=== PATIENT | female | born 1940 | race Caucasian/White ===

== ENCOUNTER 2017-10-18 13:41 | Emergency (ER) | payer MEDICARE ==
[~2017-10-18] VITALS: Ht 165.1 cm; Wt 65.3 kg
[~2017-10-18 13:41] MED LIST: DICLOFENAC SOD75 MG PO; FLEXERIL 10MG (10 MG PO; FLEXERIL 5MG TAB5 MG PO; LISINOPRIL20 MG PO; MELOXICAM7.5 MG PO; MOBIC15 MG PO; NEURONTIN300 MG PO; PERCOCET 325 MG1 TA2 PO; VICODIN5-300 PO
[2017-10-18 15:10] LABS: ABSOLUTE BASOPHIL COUNT 0 /CUMM (0.0-0.2); ABSOLUTE EOSINOPHIL COUNT 0.1 /CUMM (0.0-0.7); ABSOLUTE GRANULOCYTE CT 3.5 /CUMM (1.4-6.5); ABSOLUTE LYMPH COUNT 1.3 /CUMM (1.2-3.4); ABSOLUTE MONOCYTE COUNT 0.4 /CUMM (0.10-0.60); BASOPHIL % 0.4 % (0.0-2.0); EOSINOPHIL % 1.2 % (0-5); GRANULOCYTE % 65.5 % (42.2-75.2); HEMATOCRIT 35.7 % (37-47); MEAN CORPUSCULAR HGB 30.5 PG (27.0-31.0); MEAN CORPUSCULAR HGB CONC 33.5 G/DL (33.0-37.0); MEAN CORPUSCULAR VOLUME 91.1 FL (81.0-99.0); MEAN PLATELET VOLUME 9.9 FL (7.4-10.4); PLATELET COUNT 231 /CUMM (130-400); RBC DISTRIBUTION WIDTH 13.3 % (11.5-14.5); RED BLOOD CELL CT 3.92 /CUMM (4.20-5.40); WHITE BLOOD CELL COUNT 5.3 /CUMM (4.8-10.8)
--- NOTE | 2017-10-18 16:32 | ED HEADACHE COMPLAINT ---
History of Present Illness General Chief Complaint: General Adult Stated Complaint: ?SINUS INFECTION Source: patient Exam Limitations: no limitations Allergies Coded Allergies: STATINS (muscle ache and liver issues 01/07/15) Reconcile Medications Amoxicillin/Potassium Clav (Augmentin 875-125 Tablet) 875 MG-125 MG TABLET 1 TAB PO BID sinusitis Cyclobenzaprine (Flexeril 5MG Tab) 5 MG TAB 1 TAB PO Q8H PAIN (Reported) Diclofenac Sodium 75 MG ECT 1 TAB PO DAILY PAIN (Reported) Fiorinal (Fiorinal 50-325-40 MG Capsule) 50 MG-325 MG-40 MG CAPSULE 1 TAB PO BID PRN headache Gabapentin (Neurontin) 300 MG CAP 1 CAP PO QHS PAIN (Reported) HYDROCODONE/ACETAMINOPHEN (Hydrocodon-Acetaminophen 5-325) 1 TAB TAB 1-2 TAB PO Q4-6 PRN pain do not take with tylenol Lisinopril 20 MG TAB 1 TAB PO DAILY BP (Reported) Meloxicam 7.5 MG TAB 1 TAB PO BID PAIN (Reported) Triage Note: 77 Y/O AUGUST. STATES SHE WENT TO WALK IN 10/02/17 AND WAS DIAGNOSED WITH SINUSITIS BUT IS GETTING WORSE; WAS NEVER PUT ON ANTIBIOTICS. C/O WORSENING HEADACHES, NASAL CONGESTION AND "BRIGHT YELLOW" PHLEGM. ALSO STATES SHE HAD A "STRANGE RASH" ON LEG A FEW MONTHS AGO, RASH IS NOW GONE BUT PT CONCERNED ABOUT LYME DISEASE Triage Nurses Notes Reviewed? yes Onset: Gradual Duration: day(s): Timing: recent history Quality/Severity: moderate, achy Head Injury Location: frontal HPI: 77yo female with hx of HTN presents to ED complaining of "sinus infection" x 2-3 weeks. Patient reports frontal and facial headache with pressure behind left ear. She also notes rhinorrhea and nasal congestion. Patient reports hx of previous sinus infections and states her current symptoms feel similar. Patient reports a history of a red rash on her leg about 1 month ago which has since resolved however is concerned about lyme exposure, no known tick siting. Patient denies head trauma, visual changes, numbness, vomiting, fevers, sick contact. (Amy DIAZ,Cynthia Flores) Vital Signs & Intake/Output Vital Signs & Intake/Output Vital Signs Date Time Temp Pulse Resp B/P B/P Pulse O2 O2 Flow FiO2 Mean Ox Delivery Rate 10/18 1730 72 18 153/78 97 Room Air 10/18 1344 97.6 86 16 165/94 96 Room Air (Taye BONNER,[facility]) Past History Travel History Traveled to [place] past 21 day No Medical History Any Pertinent Medical History? see below for history Neurological: NONE EENT: NONE Cardiovascular: hypertension Respiratory: NONE Gastrointestinal: GERD Hepatic: NONE Renal: NONE Musculoskeletal: chronic back pain, disk herniation, spinal stenosis, See Admission History & Physical Examination Report and Operative Psychiatric: NONE Endocrine: NONE Blood Disorders: NONE Cancer(s): NONE AMMONIA SOLUTION PREPARER/Reproductive: NONE Other Medical Hx: See Admission History & Physical Examination Report and Operative Report from current admission for additional details. History of MRSA: No History of VRE: No History of CDIFF: No Influenza Vaccine: 12/05/14 Surgical History Surgical History: Preoperative Pertinent Surgical History On Admission: None Current Admission Surgical History: L5, L4, and L3 decompressive laminectomies and L2 bilateral inferior decompressive hemilaminotomies with bilateral L5-S1, L4-L5, L3-L4, and L2-L3 partial medial facetectomies and bilateral foraminotomies on 01/08/2015. See Admission History & Physical Examination Report and Operative Report from current admission for additional details. Psychosocial History Who do you live with Spouse Services at Home None What is your primary language Croatian Tobacco Use: Never used Family History Hx Contributory? No (Cynthia Bello) Review of Systems Review of Systems Constitutional: Reports: see HPI. Eyes: Reports: see HPI. Ears, Nose, Throat, Mouth: Reports: no symptoms. Respiratory: Reports: no symptoms. Cardiovascular: Reports: no symptoms. Gastrointestinal/Abdominal: Reports: no symptoms. Genitourinary: Reports: no symptoms. Musculoskeletal: Reports: no symptoms. Skin: Reports: no symptoms. Neurological/Psychological: Reports: see HPI. Hematologic/Endocrine: Reports: no symptoms. Endocrine: Reports: no symptoms. Immunologic/Allergic: Reports: no symptoms. All Other Systems: Reviewed and Negative (Cynthia Bello) Physical Exam Physical Exam General Appearance: well developed/nourished, no apparent distress, alert, awake Head: atraumatic, normal appearance Eyes: Bilateral: normal appearance, PERRL, EOMI. Ears, Nose, Throat: normal pharynx, normal ENT inspection, hearing grossly normal, maxillary sinus tenderness Neck: normal inspection, supple, full range of motion Respiratory: normal breath sounds, no respiratory distress, lungs clear Cardiovascular: regular rate/rhythm Back: normal inspection, normal range of motion Extremities: normal inspection, normal range of motion Psychiatric: awake, alert, oriented x 3 Cranial Nerves: normal hearing, normal speech, PERRL, CN II-XII intact Coordination/Gait: normal finger to nose, normal gait Motor/Sensory: no motor/sensory deficits Skin: intact, normal color, warm/dry Core Measures Sepsis Present: No Sepsis Focused Exam Completed? No (Amy DIAZ,Cynthia Flores) Progress Differential Diagnosis: cav sinus thromb, cluster [place], encephalitis, IC mass/ tumor, intracranial Hem., meningitis, migraine [place], sinusitis, subarach. Hem., tension [place] Diagnostic Imaging: Viewed by Me: CT Scan. Discussed w/RAD: CT Scan. Radiology Impression: PATIENT: MUKESH CORDOVA PRESENT AGE: 77 PATIENT ACCOUNT NO: [id number] : 40 LOCATION: [facility] ORDERING PHYSICIAN: Cynthia DIAZ SERVICE DATE: 10/18/17 EXAM TYPE: CAT - CT HEAD WO IV CONTRAST EXAMINATION: CT HEAD WITHOUT CONTRAST CLINICAL INFORMATION: Headache. COMPARISON: Head CT from 06/14/2012. TECHNIQUE: Contiguous axial imaging was performed from the skull base to vertex without intravenous administration of contrast. DLP: 602 mGy-cm FINDINGS: Vessels: Atherosclerotic calcification of cavernous carotid arteries and proximal intradural segments of vertebral arteries. Brain parenchyma: No acute findings. Gooden-white matter differentiation is well preserved. No evidence of an acute major vascular territory infarction, hemorrhage, mass or midline shift. The chronic, mild patchy hypoattenuation in the supratentorial white matter is consistent with chronic small vessel ischemic change. Cerebrospinal fluid spaces : Unremarkable. No hydrocephalus or extra-axial fluid collections. Cerebellum and brainstem: Unremarkable. The 4th ventricle is midline in position. The cerebellopontine angles are normal. Calvarium and temporomandibular joints: Calvarium is intact. Mastoid air cells and middle ear cavities are well aerated. The TMJs are normal. Paranasal sinuses and orbits: Mild mucosal thickening of the posterior left sphenoid sinus, unchanged compared to 06/14/2012. The visualized orbits and globes are intact. Other: No acute findings in the visualized extracranial soft tissues. IMPRESSION: - Findings suggestive of chronic, mild microvascular ischemic changes of supratentorial white matter. - No acute intracranial pathology compared to 06/14/2012. DICTATED BY: Kednall Weathers MD DATE/TIME DICTATED:10/18/171641 BILINGUAL ACCOUNT MANAGER:DEVIN DATE/TIME TRANSCRIBED:10/18/171641 CONFIDENTIAL, DO NOT COPY WITHOUT APPROPRIATE AUTHORIZATION. <Electronically signed in Other Vendor System> SIGNED BY: Kendall Weathers MD 10/18/17 1650 (Amy DIAZ,Cynthia Flores) Plan of Care: Orders Procedure Date/time Status LYME TITRE 10/18 1446 Active COMPREHENSIVE METABOLIC PANEL 10/18 144 Complete CBC WITHOUT DIFFERENTIAL 10/18 144 Complete Laboratory Tests 10/18/17 1458: Anion Gap 7, Estimated GFR > 60, BUN/Creatinine Ratio 24.3, Glucose 111 H, Calcium 9.8, Total Bilirubin 0.5, AST 23, ALT 25, Alkaline Phosphatase 80, Total Protein 7.1, Albumin 4.3, Globulin 2.8, Albumin/Globulin Ratio 1.5, CBC w Diff NO MAN DIFF REQ, RBC 3.92 L, MCV 91.1, MCH 30.5, MCHC 33.5, RDW 13.3, MPV 9.9, Gran % 65.5, Lymphocytes % 25.3, Monocytes % 7.6, Eosinophils % 1.2, Basophils % 0.4, Absolute Granulocytes 3.5, Absolute Lymphocytes 1.3, Absolute Monocytes 0.4 , Absolute Eosinophils 0.1, Absolute Basophils 0, Lyme Disease Antibody Pending Clinically consistent with sinusitis despite CT scan. SEen by Dr. Kothari. Will treat with augmentin and fioricet. Follow up with ENT. Patient is neurologically intact without focal neurologic deficit. (Cynthia Bello) (Taye BONNER,[facility]) Departure Departure Disposition: HOME OR SELF CARE Condition: Stable Clinical Impression Primary Impression: Headache Qualifiers: Headache type: unspecified Headache chronicity pattern: acute headache Secondary Impressions: Sinusitis Qualifiers: Sinusitis location: unspecified location Chronicity: unspecified Qualified Code: J32.9 - Chronic sinusitis, unspecified Referrals: Jaime Ramsey DO (PCP/Family) Additional Instructions: Take anitbiotics as prescribed. Follow up with ENT specialist. Return with worsening symptoms or concerns. Please note that there might be incidental findings in your evaluation that are unrelated to the current emergency department visit. Please notify your primary care doctor about this emergency department visit in order to obtain and review all of the testing performed so that these incidental findings can be monitored as needed. If you had an x-ray performed, please understand that some fractures may not be seen on the initial set of x-rays. If your symptoms persist you might need a repeat set of x-rays to check for such a fracture. If you had a laceration evaluated, please understand that foreign bodies such as glass or wood may not be visible to the naked eye or on plain x-rays. If the wound becomes red, swollen, increasingly more painful or if there is any drainage from the wound, please have it reevaluated by a physician for the possibility of a retained foreign body. If you're unable to follow up as outlined in the discharge instructions please return to the emergency department. Thank you for choosing the [facility] Emergency Department for your care. It was a pleasure to serve you today. Departure Forms: Customer Survey General Discharge Information Prescriptions: Current Visit Scripts Amoxicillin/Potassium Clav (Augmentin 875-125 Tablet) 1 TAB PO BID #20 TAB Fiorinal (Fiorinal 50-325-40 MG Capsule) 1 TAB PO BID PRN headache #10 CAP (Amy DIAZ,Cynthia Flores) PA/MANAGER SHELL Co-Sign Statement Statement: ED Attending supervision documentation- [x] I saw and evaluated the patient. I have also reviewed all the pertinent lab results and diagnostic results. I agree with the findings and the plan of care as documented in the PA's/MANAGER SHELL's documentation. [] I have reviewed the ED Record and agree with the PA's/MANAGER SHELL's documentation. [] Additions or exceptions (if any) to the PAs/MANAGER SHELL's note and plan are summarized below: [] 77-year-old woman presents with frontal headache for the past 3 weeks. She does report some nasal drainage. CT scan of the head does not reveal any acute abnormality, does not reveal any obvious sinusitis. The patient has perfect neurological exam. no concern for SAH, meningitis or any other acute life threatening abnormality. The patient's sitory seems consistent with URI with congestion. we will t/t symptomatically and have PCP re-assess the patient (Taye BONNER,[facility])
--- NOTE | 2017-10-18 16:50 | CT SCAN REPORT ---
EXAMINATION: CT HEAD WITHOUT CONTRAST CLINICAL INFORMATION: Headache. COMPARISON: Head CT from 06/14/2012. TECHNIQUE: Contiguous axial imaging was performed from the skull base to vertex without intravenous administration of contrast. DLP: 602 mGy-cm FINDINGS: Vessels: Atherosclerotic calcification of cavernous carotid arteries and proximal intradural segments of vertebral arteries. Brain parenchyma: No acute findings. Gooden-white matter differentiation is well preserved. No evidence of an acute major vascular territory infarction, hemorrhage, mass or midline shift. The chronic, mild patchy hypoattenuation in the supratentorial white matter is consistent with chronic small vessel ischemic change. Cerebrospinal fluid spaces: Unremarkable. No hydrocephalus or extra-axial fluid collections. Cerebellum and brainstem: Unremarkable. The 4th ventricle is midline in position. The cerebellopontine angles are normal. Calvarium and temporomandibular joints: Calvarium is intact. Mastoid air cells and middle ear cavities are well aerated. The TMJs are normal. Paranasal sinuses and orbits: Mild mucosal thickening of the posterior left sphenoid sinus, unchanged compared to 06/14/2012. The visualized orbits and globes are intact. Other: No acute findings in the visualized extracranial soft tissues. IMPRESSION: - Findings suggestive of chronic, mild microvascular ischemic changes of supratentorial white matter. - No acute intracranial pathology compared to 06/14/2012.
[2017-10-18 17:30] VITALS: BP 153/78
[2017-10-18] MEDS ORDERED: FIORINAL 50-321 EACH PO (19:30)
[2017-10-18] MEDS ORDERED: AUGMENTIN 875-1 EACH PO (19:30)
== END 2017-10-18 19:31 ==
LOC: ERH 13:41
PROVIDERS: Physician Assistant Medical
DX: J32.9 Chronic sinusitis, unspecified (principal); I10 Essential (primary) hypertension; K21.9 Gastro-esophageal reflux disease without esophagitis
CPT/HCPCS: 86618; 87476